=== PATIENT | male | born 1980 | race Caucasian/White ===

== ENCOUNTER 2016-10-20 17:13 | Emergency (ER) | payer SELFPAY ==
[2016-10-20] MEDS ORDERED: Ondansetron ODT TAB* 4 MG PO ONE (17:34)
--- NOTE | 2016-10-20 17:40 | UC ---
Abdominal Pain Male HPI - HPI Summary HPI Summary: The patient comes in today for: 1. Abdominal pain/vomiting. Onset: Today about 9 hours ago. Palliative/provocative: Nothing makes the pain better or worse. Quality: "like I got punched in the abdomen." Region: Upper abdomen midline. Severity: 7-10 Time: Comes and goes. Associated symptoms: Event: He states that he was laying down, and had a sudden onset of nausea. He has vomited about 20-30 times. He vomited 3-4 times before having the abdominal pain. He states that he brings up bile vomitus. No blood. No coffee ground material. He has not had any melena. He has only a history of GERD. Last BM 1-2 hours ago. Urination: "normal." He last urinated "a few hours ago--"jumpbasting canvas baster yellow." Fevers: No temperature taken. Near syncope: Present on his drive up to see us. * - History of Current Complaint Chief Complaint: UCGI Stated Complaint: DIZZINESS,SOB,VOMITING Time Seen by Provider: 10/20/16 17:27 Hx Obtained From: Patient - Allergies/Home Medications Allergies/Adverse Reactions: Allergies Allergy/AdvReac Type Severity Reaction Status Date / Time Alprazolam [From Xanax] Allergy Severe Shortness Verified 10/20/16 17:20 of Breath PMH/Surg Hx/FS Hx/Imm Hx Previously Healthy: No GI/ History: Gastroesophageal Reflux Psychological History: Anxiety, Depression - Surgical History Surgical History: None - Family History Known Family History: Positive: Hypertension Negative: Cardiac Disease - Social History Occupation: Employed Full-time Alcohol Use: Rare Substance Use Type: None Smoking Status (MU): Never Smoked Tobacco Review of Systems Constitutional: Negative Skin: Negative Eyes: Negative ENT: Negative Respiratory: Negative Cardiovascular: Palpitations Gastrointestinal: Abdominal Pain, Vomiting All Other Systems Reviewed And Are Negative: Yes Physical Exam Triage Information Reviewed: Yes Appearance: Pain Distress - He will grimace and vomit episodically but other times will not. He will shake during these episodes., Thin Vital Signs: Initial Vital Signs Temp 98.1 F 10/20/16 17:18 Pulse 59 10/20/16 17:18 Resp 16 10/20/16 17:18 BP 136/79 10/20/16 17:18 Pulse Ox 99 06/05/17 17:18 Vital Signs Reviewed: Yes Eyes: Positive: Conjunctiva Clear. Negative: Discharge ENT: Positive: Other: - Ears: Pinna non-erythematous, no dischage. Mouth: mucous membranes pink, moist.. Negative: Pharyngeal erythema, Nasal congestion , Nasal drainage Dental: Negative: Gross Decay/Caries @, Dental Fracture @ Neck: Positive: Supple, Nontender, No Lymphadenopathy. Negative: Nuchal Rigidity Respiratory: Positive: Chest non-tender, Lungs clear, No respiratory distress, No accessory muscle use. Negative: Wheezing Cardiovascular: Positive: RRR, No Murmur Abdomen Description: Negative: Nontender - HE has tenderness in all four quadrants. There is rebound tenderness and percussion tenderness in all four quadrants. The abdominal wall is firm/guarding. He has, Soft Musculoskeletal: Positive: Strength Intact, No Edema Neurological: Positive: Alert, Muscle Tone Normal Psychological: Positive: Age Appropriate Behavior, Consolable Skin: Negative: rashes, breakdown Abd Pain Male Course/Dx - Course Course Of Treatment: Patient given zofran 4 mg SL but he vomited shortly thereafter. He thinks that he kept it under his tongue. He had an IV started along with D5NS wide open. - Differential Dx/Clinical Impression Provider Diagnoses: abdominal pain, perforated ulcer? gastritis? volvulus? Discharge - Discharge Plan Condition: Stable Disposition: TRANS HIGHER LVL OF CARE FAC Additional Instructions: Patient is going [place] [facility] [place] pain [place]. [place] ambulance called 6:05 PM.
[2016-10-20] MEDS ORDERED: D5NS 0.9% 1000 ML BAG* 1,000 ML IV SCH (18:00)
[2016-10-20 18:17] VITALS: BP 141/88
== END 2016-10-20 18:15 | disposition short-term general hospital (02) ==
LOC: UCEAST 17:13
DX: R10.84 Generalized abdominal pain (principal)
CPT/HCPCS: 96360; 99213; A9270-GY; G0463

== ENCOUNTER 2018-07-05 12:20 | Emergency (ER) | payer SELFPAY ==
[2018-07-05 13:14] VITALS: BP 116/70
[2018-07-05] MEDS ORDERED: Fluorescein Sodium TOPICAL* 1 MG TEST STRIP OPHTHALMIC ONE (13:16)
--- NOTE | 2018-07-05 13:25 | UC ---
UC General HPI - HPI Summary HPI Summary: pt noted L eye irritation on thursday. by thursday, eye turned red. eye now has a discharge. + light sensitive. uses contacts and is currently wearing them. - History of Current Complaint Chief Complaint: Brandie Stated Complaint: LEFT EYE COMPLAINT Time Seen by Provider: 07/05/18 13:11 Hx Obtained From: Patient Onset/Duration: Gradual Onset Timing: Constant Pain Intensity: 7 Associated Signs & Symptoms: Negative: Edema, Fever, Headache - Allergy/Home Medications Allergies/Adverse Reactions: Allergies Allergy/AdvReac Type Severity Reaction Status Date / Time alprazolam [From Xanax] Allergy Unknown Shortness Verified 07/05/18 13:07 of Breath PMH/Surg Hx/FS Hx/Imm Hx Previously Healthy: Yes Other History Of: Negative For: Anticoagulant Therapy - Surgical History Surgical History: None - Family History Known Family History: Positive: None, Hypertension, Other - GM - diverticulitis Negative: Cardiac Disease - Social History Occupation: Employed Full-time Alcohol Use: None Substance Use Type: None Smoking Status (MU): Never Smoked Tobacco Review of Systems All Other Systems Reviewed And Are Negative: Yes Constitutional: Positive: Negative Skin: Positive: Negative Eyes: Positive: Drainage, Eye Redness, Photophobia. Negative: Blurred Vision, Diplopia ENT: Positive: Negative Respiratory: Positive: Negative Cardiovascular: Positive: Negative Gastrointestinal: Positive: Negative Genitourinary: Positive: Negative Motor: Positive: Negative Neurovascular: Positive: Negative Musculoskeletal: Positive: Negative Neurological: Positive: Negative Psychological: Positive: Negative Physical Exam Triage Information Reviewed: Yes Appearance: Well-Appearing Vital Signs: Initial Vital Signs Temp 98.5 F 07/05/18 13:07 Pulse 68 07/05/18 13:07 Resp 18 07/05/18 13:07 BP 116/70 07/05/18 13:07 Pulse Ox 98 07/05/18 13:07 Vital Signs Reviewed: Yes Eyes: Positive: Other: - OD 20/20, OU 20/20, OS 20/30(with contacts) No auricular nodes. No periorbital edema or rash. PERRL, EOMI, AC's clear. Lids everted and no FB's. Conjuntiva R clear and L injected. Contact removed L eye then stained and opaque spot at 12 o' clock on cornea. ENT: Positive: Pharynx normal, TMs normal. Negative: Nasal congestion, Nasal drainage Neck: Positive: Supple, Nontender, No Lymphadenopathy Respiratory: Positive: Lungs clear Cardiovascular: Positive: RRR Abdomen Description: Positive: Nontender Bowel Sounds: Positive: Present Neurological: Positive: Alert Psychological: Positive: Age Appropriate Behavior Course/Dx - Course Course Of Treatment: Lens kept out of L eye. Office of Dr winter contacted and pt to f/u with them now for ongoing evaluation for corneal ulcer. Pt took the lens with him. he was advised to dispose of it. - Diagnoses Provider Diagnosis: Corneal ulcer Discharge - Sign-Out/Discharge Documenting (check all that apply): Patient Departure All imaging exams completed and their final reports reviewed: No Studies - Discharge Plan Condition: Stable Disposition: HOME Patient Education Materials: Corneal Ulcer (ED) Referrals: Wendy Winter MD [Medical Doctor] - Additional Instructions: FOLLOW UP NOW ARRANGED BY THIS OFFICE WITH DR BOWLES AT DR WINTER'S OFFICE - Billing Disposition and Condition Condition: STABLE Disposition: Home
== END 2018-07-05 13:39 | disposition home or self-care (01) ==
LOC: UCCORT 12:20
DX: H16.002 Unspecified corneal ulcer, left eye (principal); Z88.8 Allergy status to other drugs, medicaments and biological substances
CPT/HCPCS: 99212; A9270-GY; G0463

== ENCOUNTER 2019-04-18 10:22 | Emergency (ER) | payer BC ==
[2019-04-18 10:35] VITALS: BP 122/86
--- NOTE | 2019-04-18 10:47 | UC ---
Throat Pain/Nasal Brennan HPI - HPI Summary HPI Summary: 38-year-old male comes in with chief complaint of 3 days of upper respiratory tract infection symptoms. He's got sinus congestion and pressure with yellow rhinorrhea. He also has postnasal drip with sore throat. No chest congestion or shortness of breath. He did have a fever. Also had body aches. - History of Current Complaint Chief Complaint: UCGeneralIllness Stated Complaint: SINUSES/WEAK/BODY ACHES/COLD CHILLS Time Seen by Provider: 04/18/19 10:25 Pain Intensity: 0 - Allergies/Home Medications Allergies/Adverse Reactions: Allergies Allergy/AdvReac Type Severity Reaction Status Date / Time alprazolam [From Xanax] Allergy Unknown Itching Verified 04/18/19 10:32 Home Medications: Home Medications Phenylephrine/Dm/Acetaminop/GG [Cold & Flu Severe Daytime 1-18-869-325 mg] 1 tab PO ONCE 04/18/19 [History Confirmed 04/18/19] PMH/Surg Hx/FS Hx/Imm Hx Previously Healthy: Yes Other History Of: Negative For: Anticoagulant Therapy - Surgical History Surgical History: None - Family History Known Family History: Positive: None, Hypertension, Other - GM - diverticulitis Negative: Cardiac Disease - Social History Alcohol Use: None Substance Use Type: None Smoking Status (MU): Never Smoked Tobacco Review of Systems All Other Systems Reviewed And Are Negative: Yes Constitutional: Positive: Fever - SEE HPI Skin: Positive: Negative Eyes: Positive: Negative ENT: Positive: Sore Throat, Nasal Discharge, Sinus Pain/Tenderness Respiratory: Positive: Negative Cardiovascular: Positive: Negative Gastrointestinal: Positive: Negative Motor: Positive: Negative Neurovascular: Positive: Negative Musculoskeletal: Positive: Myalgia Neurological: Positive: Negative Psychological: Positive: Negative Is Patient Immunocompromised?: No Physical Exam Triage Information Reviewed: Yes Appearance: No Pain Distress, Well-Nourished, Ill-Appearing - MILD Vital Signs: Initial Vital Signs Temp 97.9 F 04/18/19 10:31 Pulse 100 04/18/19 10:31 Resp 14 04/18/19 10:31 BP 122/86 04/18/19 10:31 Pulse Ox 98 04/18/19 10:31 Vital Signs Reviewed: Yes Eye Exam: Normal Eyes: Positive: Conjunctiva Clear ENT: Positive: Pharyngeal erythema, Nasal congestion, Nasal drainage, TMs normal Neck: Positive: Supple Respiratory: Positive: Lungs clear, Normal breath sounds, No respiratory distress Cardiovascular: Positive: RRR Musculoskeletal: Positive: Strength Intact, ROM Intact Neurological: Positive: Alert Psychological: Positive: Age Appropriate Behavior Skin Exam: Normal Throat Pain/Nasal Course/Dx - Course Course Of Treatment: DISCUSSED VIRAL VERSES BACTERIAL INFECTIONS AND THE ROLE OF ANTIBIOTICS. THE PATIENT PREFERS TO BE ON ANTIBIOTICS AT THIS TIME. - Differential Dx/Diagnosis Provider Diagnosis: Sinusitis Discharge ED - Sign-Out/Discharge Documenting (check all that apply): Patient Departure All imaging exams completed and their final reports reviewed: No Studies - Discharge Plan Condition: Stable Disposition: HOME Prescriptions: Amoxicillin PO (*) [Amoxicillin 875 MG (*)] 875 mg PO BID #20 tab Patient Education Materials: Sinusitis (ED) Forms: *Work Release Referrals: Alex Perez MD [Primary Care Provider] - Additional Instructions: FOLLOW UP WITH YOUR DOCTOR IF NOT COMPLETELY IMPROVED. GET REEVALUATED SOONER IF NOT IMPROVING OR WORSE OR ANY QUESTIONS OR CONCERNS. - Billing Disposition and Condition Condition: STABLE Disposition: Home
== END 2019-04-18 10:51 | disposition home or self-care (01) ==
LOC: UCCORT 10:22
DX: J32.9 Chronic sinusitis, unspecified (principal); J02.9 Acute pharyngitis, unspecified; Z88.8 Allergy status to other drugs, medicaments and biological substances
CPT/HCPCS: 99212; G0463

== ENCOUNTER 2019-05-06 17:49 | Emergency (ER) | payer BC ==
[2019-05-06 18:19] VITALS: BP 137/90
[2019-05-06] MEDS ORDERED: Ondansetron ODT TAB* 4 MG PO ONE (18:42)
--- NOTE | 2019-05-06 18:46 | UC ---
Nausea/Vomiting/Diarrhea HPI - HPI Summary HPI Summary: 38-year-old male comes in with a chief complaint of nausea and vomiting. This started yesterday. There is been blood in his vomit. His first episode of vomiting symptoms quite a bit of blood. He reports his stools are normal light brown. He has a chronic history of GERD and reports he is on Protonix and omeprazole. Also reports that he has been admitted before for the vomiting and the GERD. He has been feeling a little bit lightheaded. He has epigastric burning pain. - History of Current Complaint Chief Complaint: UCGI Stated Complaint: VOMITING Time Seen by Provider: 05/06/19 18:08 Pain Intensity: 7 - Allergies/Home Medications Allergies/Adverse Reactions: Allergies Allergy/AdvReac Type Severity Reaction Status Date / Time alprazolam [From Xanax] Allergy Unknown Itching Verified 05/06/19 17:53 Home Medications: Home Medications Omeprazole 1 tab DAILY 05/06/19 [History Confirmed 05/06/19] Pantoprazole TAB * [Protonix TAB*] 40 mg PO DAILY 05/06/19 [History Confirmed ] PMH/Surg Hx/FS Hx/Imm Hx Previously Healthy: Yes GI/ History: Gastroesophageal Reflux, Gastrointestional Bleed Other History Of: Negative For: Anticoagulant Therapy - Surgical History Surgical History: Yes Surgery Procedure, Year, and Place: Endoscopy, 2007 - Family History Known Family History: Positive: None, Hypertension, Other - GM - diverticulitis Negative: Cardiac Disease - Social History Alcohol Use: None Substance Use Type: None Smoking Status (MU): Never Smoked Tobacco Review of Systems All Other Systems Reviewed And Are Negative: Yes Constitutional: Positive: Other - see hpi Skin: Positive: Negative Eyes: Positive: Negative ENT: Positive: Negative Respiratory: Positive: Negative Cardiovascular: Positive: Negative Gastrointestinal: Positive: Abdominal Pain, Vomiting, Nausea, Other - see hpi Motor: Positive: Negative Neurovascular: Positive: Negative Musculoskeletal: Positive: Negative Neurological: Positive: Negative Psychological: Positive: Negative Is Patient Immunocompromised?: No Physical Exam Triage Information Reviewed: Yes Appearance: Well-Appearing, No Pain Distress, Well-Nourished Vital Signs: Initial Vital Signs Temp 98.5 F 05/06/19 17:55 Pulse 124 05/06/19 17:55 Resp 18 05/06/19 17:55 BP 158/90 05/06/19 17:55 Pulse Ox 97 05/06/19 17:55 Vital Signs Reviewed: Yes Eye Exam: Normal Eyes: Positive: Conjunctiva Clear Neck: Positive: Supple, Nontender Respiratory: Positive: Lungs clear, Normal breath sounds, No respiratory distress Cardiovascular: Positive: Tachycardia Abdomen Description: Positive: Other: - Mild tenderness to palpation in the epigastrium. Negative tympany. Bowel Sounds: Positive: Present Musculoskeletal: Positive: Strength Intact, ROM Intact Neurological: Positive: Alert, Muscle Tone Normal Psychological: Positive: Age Appropriate Behavior Skin Exam: Normal Naus/Vom/Diarrhea Course/Dx - Course Course Of Treatment: I discussed the patient's orthostatic vital signs with the patient. I recommended further evaluation in the emergency department. Patient preferred to go by POV. He was steady when he was walking and not felt like passing out. I discussed the case with a provider at the [place] emergency department. Patient was given Zofran 4 mg ODT here in clinic. - Differential Dx/Diagnosis Provider Diagnosis: Nausea & vomiting, GERD (gastroesophageal reflux disease), Upper GI bleed Condition At Discharge: Stable Discharge ED - Sign-Out/Discharge Documenting (check all that apply): Patient Departure All imaging exams completed and their final reports reviewed: No Studies - Discharge Plan Condition: Stable Disposition: HOME-RECOMMEND TO ED Prescriptions: Ondansetron ODT TAB* [Zofran 4 MG Odt TAB*] 4 mg PO Q6H PRN #10 tab.odt PRN Reason: Nausea/Vomiting Patient Education Materials: Gastrointestinal Bleeding (ED) Referrals: Alex Perez MD [Primary Care Provider] - Additional Instructions: GO DIRECTLY TO THE EMERGENCY DEPARTMENT FOR FURTHER EVALUATION AND CARE OF YOUR VOMITING BLOOD. - Billing Disposition and Condition Condition: STABLE Disposition: Home-Recommend to ED
== END 2019-05-06 18:51 | disposition home health service (06) ==
LOC: UCCORT 17:49
DX: K21.9 Gastro-esophageal reflux disease without esophagitis (principal); R11.2 Nausea with vomiting, unspecified; K92.2 Gastrointestinal hemorrhage, unspecified; R10.9 Unspecified abdominal pain; R00.0 Tachycardia, unspecified; Z79.899 Other long term (current) drug therapy; Z88.8 Allergy status to other drugs, medicaments and biological substances
CPT/HCPCS: 99212; A9270-GY; G0463